=== PATIENT | female | born 1990 | race Caucasian/White ===

== ENCOUNTER 2020-09-25 15:33 | Outpatient (CLI) | payer BC, SELFPAY ==
[2020-09-25 18:49] LABS: Basophils Absolute Auto 0.1 K/mm3 (0.0-0.1); Basophils Percent Auto 0.6 % (0.2-1.2); Eosinophils Absolute Auto 0.1 K/mm3 (0-0.3); Hematocrit 38.8 % (37.0-47.0); Hemoglobin 13.6 g/dL (12.0-15.0); Immature Granulocyte Absolute 0.05 K/mm3 (0.00-0.031); Immature Granulocyte Percent A 0.6 % (0-0.5); Lymphocytes Absolute Auto 2.84 K/mm3 (0.9-3.2); Lymphocytes Percent Auto 32.4 % (18.3-44.2); Mean Corpuscular HGB Conc 35.1 g/dl (32-36); Mean Corpuscular Hemoglobin 29.5 pg (26-34); Mean Corpuscular Volume 84.2 fl (80-100); Mean Platelet Volume 10.1 fl (7.4-10.4); Monocytes Absolute Auto 0.5 K/mm3 (0.1-0.6); Monocytes Percent Auto 5.9 % (2.6-8.5); Neutrophils Absolute Auto 5.2 K/mm3 (1.3-6.7); Neutrophils Percent Auto 59.5 % (45.5-73.1); Platelet Count Result 236 k/mm3 (150-375); Red Blood Count 4.61 M/mm3 (4.2-5.4); Red Cell Distribution Width 12.1 % (11.5-14.5); White Blood Count 8.8 K/mm3 (4.5-10.0)
[2020-09-25 18:52] LABS: Add Urine Microscopic? YES; Appearance Urine Cloudy (Clear); Bacteria Urine Trace /hpf; Bilirubin Urine Negative (Negative); Blood Urine Negative (Negative); Color Urine Straw (Yellow); Glucose Urine UA Negative (Negative); Ketones Urine Negative (Negative); Leukocyte Esterase Ur Negative LEU/UL (NEGATIVE); Mucus Urine Rare /lpf; Nitrate Urine Negative (Negative); Protein Urine Negative (Negative); Specific Grav Ur 1.009 (1.001-1.035); Squamous Epithelial Cell Urine Many /hpf (Few); Urobilinogen Urine Negative mg/dL (<2.0); WBC Urine 0-3 /hpf (0-3)
[2020-09-25 19:35] LABS: Vitamin D 25 Hydroxy 35.6 ng/mL
[2020-09-25 19:53] LABS: HIV 1/2 Ab P24 Ag Result Negative (Negative)
[2020-09-25 19:55] LABS: Hepatitis B Surface Antigen Negative (Negative); Rubella IgG Antibody 85.5 IU/ML
[2020-09-25 20:01] LABS: Hepatitis C Virus Antibody Negative (Negative)
[2020-09-27 06:54] LABS: Rapid Plasma Reagin Non-Reactive (NonReactive)
[2020-09-30 08:16] LABS: Hematocrit 38.9 % (35.0-45.0); Hemoglobin 13.5 g/dL (11.7-15.5); MCH 29.5 pg (27.0-33.0); MCV 85.1 FL (80.0-100.0); RDW 12.7 % (11.0-15.0); Red Blood Cell Count 4.57 Mill/uL (3.80-5.10)
== END 2020-09-25 15:34 | disposition home or self-care (01) ==
PROVIDERS: PCP Obstetrics & Gynecology; Visit Provider Obstetrics & Gynecology
DX: Z34.91 Encounter for supervision of normal pregnancy, unspecified, first trimester (principal); Z3A.12 12 weeks gestation of pregnancy
CPT/HCPCS: 36415; 81001; 82306; 83021; 84443; 85025; 86592; 86703; 86762; 86787; 86803; 86850; 86900; 86901; 87086; 87340; G0432

== ENCOUNTER 2020-12-26 07:47 | Outpatient (RCR) | payer BC, SELFPAY ==
[2020-12-25 18:58] LABS: Basophils Percent Auto 0.3 % (0.2-1.2); Eosinophils Absolute Auto 0.1 K/mm3 (0-0.3); Eosinophils Percent Auto 1.7 % (0-4.4); Hematocrit 38.6 % (37.0-47.0); Hemoglobin 12.9 g/dL (12.0-15.0); Immature Granulocyte Absolute 0.08 K/mm3 (0.00-0.031); Lymphocytes Absolute Auto 1.99 K/mm3 (0.9-3.2); Lymphocytes Percent Auto 25.4 % (18.3-44.2); Mean Corpuscular HGB Conc 33.4 g/dl (32-36); Mean Corpuscular Hemoglobin 29.7 pg (26-34); Mean Corpuscular Volume 88.7 fl (80-100); Mean Platelet Volume 10.2 fl (7.4-10.4); Monocytes Absolute Auto 0.5 K/mm3 (0.1-0.6); Neutrophils Absolute Auto 5.2 K/mm3 (1.3-6.7); Neutrophils Percent Auto 65.6 % (45.5-73.1); Platelet Count Result 179 k/mm3 (150-375); Red Blood Count 4.35 M/mm3 (4.2-5.4); Red Cell Distribution Width 13.2 % (11.5-14.5); White Blood Count 7.9 K/mm3 (4.5-10.0)
[2020-12-25 19:10] LABS: Glucose 1 Hour PP 50gm Dose 98 mg/dL
[2020-12-26] MEDS: RHO(D) IMMUNE GLOBULIN 300 MCG/2 ML SYRINGE IM (19:32)
== END 2021-03-25 23:59 | disposition home or self-care (01) ==
LOC: ANHBWCLAB 07:47
PROVIDERS: PCP Obstetrics & Gynecology; Visit Provider Obstetrics & Gynecology
DX: Z29.13 Encounter for prophylactic Rho(D) immune globulin (principal); O36.0190 Maternal care for anti-D [Rh] antibodies, unspecified trimester, not applicable or unspecified; Z3A.00 Weeks of gestation of pregnancy not specified
CPT/HCPCS: 36415; 82947; 85025; 85461; 90384; 96372; J2790

== ENCOUNTER 2021-01-29 09:52 | Outpatient (CLI) | payer BC, SELFPAY ==
[2021-01-29 18:42] LABS: HIV 1/2 Ab P24 Ag Result Negative (Negative)
== END 2021-01-29 09:53 | disposition home or self-care (01) ==
LOC: ANHBWCLAB 09:55
PROVIDERS: PCP Obstetrics & Gynecology; Visit Provider Obstetrics & Gynecology
DX: Z34.90 Encounter for supervision of normal pregnancy, unspecified, unspecified trimester (principal); Z3A.00 Weeks of gestation of pregnancy not specified
CPT/HCPCS: 36415; 86703; G0432

== ENCOUNTER 2021-02-28 10:19 | Inpatient (IN) | payer BC, SELFPAY ==
[2021-02-28] VITALS (15 sets, daily range): BP systolic 112–139; BP diastolic 55–80; PULSE 62–73; TEMP 36.7–37.1; BMI 31.1
[2021-02-28 11:35] LABS: Basophils Percent Auto 0.3 % (0.2-1.2); Eosinophils Percent Auto 0.3 % (0-4.4); Hematocrit 37.1 % (37.0-47.0); Hemoglobin 12.7 g/dL (12.0-15.0); Immature Granulocyte Absolute 0.06 K/mm3 (0.00-0.031); Immature Granulocyte Percent A 0.6 % (0-0.5); Lymphocytes Absolute Auto 2.67 K/mm3 (0.9-3.2); Lymphocytes Percent Auto 28.8 % (18.3-44.2); Mean Corpuscular HGB Conc 34.2 g/dl (32-36); Mean Corpuscular Hemoglobin 29.3 pg (26-34); Mean Corpuscular Volume 85.7 fl (80-100); Mean Platelet Volume 10.5 fl (7.4-10.4); Monocytes Absolute Auto 0.6 K/mm3 (0.1-0.6); Monocytes Percent Auto 6.4 % (2.6-8.5); Neutrophils Absolute Auto 5.9 K/mm3 (1.3-6.7); Neutrophils Percent Auto 63.6 % (45.5-73.1); Platelet Count Result 150 k/mm3 (150-375); Red Blood Count 4.33 M/mm3 (4.2-5.4); Red Cell Distribution Width 12.7 % (11.5-14.5); White Blood Count 9.3 K/mm3 (4.5-10.0)
[2021-02-28 11:47] LABS: Alanine Aminotransferase 19 U/L (4-35); Albumin Level 3.7 g/dL (3.5-5.1); Alkaline Phosphatase 95 U/L (38-126); Anion Gap 8 mmol/L (8-16); Aspartate Amino Transferase 26 U/L (14-36); Bilirubin,Total 0.4 mg/dL (0.2-1.3); Blood Urea Nitrogen 7 mg/dL (7-17); Calcium 9.1 mg/dL (8.4-10.2); Carbon Dioxide 21 mmol/L (22-30); Chloride 107 mmol/L (98-107); Estimated Glomerular Filt Rate > 60; Glucose 77 mg/dL (65-110); Potassium 3.7 mmol/L (3.4-5.0); Sodium 136 mmol/L (137-145); Uric Acid 5.3 mg/dL (2.5-7.5)
[2021-02-28] MEDS: DINOPROSTONE 10 MG VAG INSERT VAGINAL (12:21)
--- NOTE | 2021-02-28 12:39 | LDADM ---
This patient, Anna Crar, was admitted to Labor/Delivery/Recovery 107 on 02/28/21 at 10:19. Plans for labor, pain management and were discussed with patient. Patient/family oriented to hospital policies and general routines including ID bracelet, bed and alarms, visiting hours, pain management, procedures, bathroom and other care routines, personal items, smoking policy, room service/diet and guest tray routines, security routines, and visiting hours. Patient/Family are encouraged to report perceived risks to care and to ask questions if they do not understand what they are told or what they should do. See OBIX for further documentation.
--- NOTE | 2021-02-28 15:08 | PM.IMHP ---
H&P: HPI History of Present Illness Date/Time: 02/28/21 15:08 G1 at 37+2 came to the office for repeat BP check after having elevated value earlier this week. She has been checking BP at home and getting 150s/90s. Occasional GRANDE that resolves on its own, none now. No visual changes. Normal movement. occasional ctx. No bleeding or leaking fluid Chief Complaint: gestational hypertension Review of Systems Review of Systems: All systems reviewed & are unremarkable except as noted in HPI and below PMFSH Family History Family History Father Hypertension Cerebrovascular accident Other Family history of allergic disorder Family history of osteoarthritis Social History Social History Smoking status: Never smoker Alcohol intake: never Substance use: never Gender identity (if verbalized by the patient): Female Spiritual care concerns: No Meds Home Medications and Allergies Home Medications Medication Instructions Recorded Confirmed Type docosahexaenoic acid 200 mg capsule 200 mg PO DAILY 07/26/20 02/28/21 History Allergies Allergy/AdvReac Type Severity Reaction Status Date / Time Penicillins Allergy Unknown as child Verified 02/28/21 09:32 Vital Signs Vital Signs - 24 hr 02/28/21 11:20 02/28/21 12:31 02/28/21 12:36 Pulse Rate 68 62 62 Blood Pressure 130/80 139/73 139/73 02/28/21 12:45 02/28/21 13:01 02/28/21 13:15 Pulse Rate 73 71 63 Blood Pressure 128/73 136/69 131/72 02/28/21 13:30 02/28/21 13:46 02/28/21 14:00 Pulse Rate 67 73 71 Blood Pressure 118/55 L 112/55 L 118/57 L 02/28/21 14:15 Pulse Rate 72 Blood Pressure 116/60 Exam Const: General: healthy appearing, no acute distress, well developed, alert and awake Resp: Auscultation: clear to auscultation bilaterally Cardio: Rate: regular rate Rhythm: regular rhythm GI: Inspection: non-distended and other (gravid) GI Palp: Yes Soft to palpation and No Tenderness to palpation present (GI) : Manual OB Exam: dilated 1 cm, effaced 25% and station high Extrem: General: no calf tenderness and edema (1+) bilateral Psych: Mental Status: mental status grossly normal H&P: Results Labs Labs: Short CBC 02/28/21 Range/Units 11:20 WBC 9.3 (4.5-10.0) K/mm3 Hgb 12.7 (12.0-15.0) g/dL Hct 37.1 (37.0-47.0) % Plt Count 150 (150-375) k/mm3 BMP 02/28/21 11:20 Sodium 136 L Potassium 3.7 Chloride 107 Carbon Dioxide 21 L BUN 7 Creatinine 0.60 L Glucose 77 Calcium 9.1 Liver Function 02/28/21 Range/Units 11:20 Total Bilirubin 0.4 (0.2-1.3) mg/dL AST 26 (14-36) U/L ALT 19 (4-35) U/L Alkaline Phosphatase 95 (38-126) U/L Albumin 3.7 (3.5-5.1) g/dL Assessment and Plan Assessment and plan (1) Gestational hypertension: Code(s): O13.9 - Gestational [-induced] hypertension without significant proteinuria, unspecified trimester Status: Acute Assessment and Plan: She was advised to proceed with induction of labor due to gestational hypertension at full term. Cervix unfavorable so we'll start with cervidil. GBS negative. Check PIH labs and observe BP and symptoms closely. status reassuring
[2021-03-01] VITALS (205 sets, daily range): BP systolic 107–191; BP diastolic 54–175; PULSE 50–110; TEMP 36.5–38.2; O2SAT 73–100
[2021-03-01] MEDS: miSOPROStol 25 MCG TABLET VAGINAL ×2 (02:05→06:16)
[2021-03-01] MEDS: LACTATED RINGERS 1,000 ML 125 ML IV CONT ×3 (02:07→15:58)
[2021-03-01] MEDS: fentaNYL CITRATE INJ (*CRX) 100 MCG/2 ML VIAL 50 MCG IV PUSH ×2 (09:41→12:36)
--- NOTE | 2021-03-01 10:01 | PM.OBPNLAB ---
Pain Control Date/time seen: 03/01/21 10:01 Pain control: tolerating well Pelvic Exam Dilation (cm): 2 Effacement (%): 50 station: -2 Amniotic membrane status: Ruptured Comments: AROM with clear fluid Contractions Monitor mode: External Contraction frequency: 2 Contraction pattern: Irregular Contraction intensity: Mild Status status: Category l Assessment and Plan Assessment: induction ongoing Plan: begin patient augmentation (in 30 minutes or so if needed)
[2021-03-01] MEDS: OXYTOCIN 30 UNITS/NS 500 ML 30 UNITS/500 ML BAG 6 UNITS IV CONT (10:51)
[2021-03-01] MEDS: ACETAMINOPHEN 500 MG TABLET 1000 MG PO (23:43)
[2021-03-02] VITALS (79 sets, daily range): BP systolic 124–169; BP diastolic 68–128; PULSE 53–87; RESP 18–20; TEMP 36.1–37.4; O2SAT 95–100
[2021-03-02] MEDS: CLINDAMYCIN 300 MG in DEXTROSE 5% IN WATER 50 ML 104 MG IVPB (00:03)
--- NOTE | 2021-03-02 05:33 | PM.OBPRVD ---
OB - Delivery Note Procedure Delivery date: 03/02/21 Procedure: events: Induced HTN Intrapartal events: Prolonged Labor > 20 hours and Febrile Induction method: per misoprostol protocol, per pitocin protocol and per cervidil protocol Delivery augmentation: rupture of membranes Delivery monitor: external FHT and internal uterine Route of delivery: Laceration Description: Perineal - 2nd Degree Delivery repair: vicryl (2-0) Specimen: Yes (placenta) Quantitative Blood Loss (ml): 212 Anesthesia type: Epidural Disposition: floor Baby Date of : 03/02/21 Time of : 05:08 Weeks of gestation at delivery: 37 gender: Female Weight (pounds): 7 Weight (ounces): 14 presentation: vertex position: Right Occiput Anterior Placenta delivery description: Spontaneous cord vessel description: 3 Vessels and Clamped/Cut score one minute: 8 score five minutes: 9
[2021-03-02] MEDS: OXYTOCIN 30 UNITS/NS 500 ML 30 UNITS/500 ML BAG 125 UNITS IV CONT (05:42)
[2021-03-02] MEDS: IBUPROFEN 600 MG TABLET PO ×3 (06:42→19:40)
[2021-03-02] MEDS: BENZOCAINE 20% AER SPR (*SP) 56 GM CAN 1 SPRAY TOPICAL (07:42)
[2021-03-02] MEDS: WITCH HAZEL 40 PADS 1 PAD TOPICAL (07:42)
[2021-03-02] MEDS: DOCUSATE SODIUM 100 MG CAPSULE PO (12:52)
[2021-03-02] MEDS: MULTIVIT/MIN/PREN/FOL AC/IRON TABLET 1 TAB PO (12:52)
--- NOTE | 2021-03-02 13:24 | OBPPTRN ---
0825-Patient transferred to post room #288 via wheelchair. Support person present. Oriented to unit, room, information board, rooming in, admission packet and security measures. Patient verbalizes understanding.
[2021-03-03 04:45] VITALS: BP 133/74; PULSE 70; TEMP 36.1; O2SAT 100
[2021-03-03 05:41] LABS: Hematocrit 32.4 % (37.0-47.0)
[2021-03-03] MEDS: MULTIVIT/MIN/PREN/FOL AC/IRON TABLET 1 TAB PO (07:06)
[2021-03-03] MEDS: IBUPROFEN 600 MG TABLET PO ×2 (07:06→19:09)
--- NOTE | 2021-03-03 07:56 | P.PNOB_ITS ---
OB - PN: Subj Subjective Date/time seen: 03/03/21 07:56 Patient comments: no complaints, pain well controlled and other (Lochia similar to menses. Occasional GRANDE relieved w/Motrin. No visual changes) baby status: doing well OB - PN: Obj Data Labs CBC & Chem 7: 03/03/21 04:24 02/28/21 11:20 Labs: Laboratory Results - last 24 hr 03/03/21 03/03/21 04:24 04:24 Hgb 11.0 L Hct 32.4 L Blood Type O Negative Antibody Screen TNP Screen Negative Baby's Blood Type A pos Baby's ALAINA Positive Doses of RhIg Required 1 OB - PN A/P Assessment and Plan (1) Gestational hypertension: Code(s): O13.9 - Gestational [-induced] hypertension without significant proteinuria, unspecified trimester Status: Acute Assessment and Plan: BP mostly WNL, a few mildly elevated values. Occasional GRANDE relieved with Motrin, otherwise asymptomatic so continue to observe BP, signs, and symptoms. Plan day: 1 (s/p vaginal delivery, doing well) Plan: routine care Time Spent With Patient Time: Total time spent is greater than 50% in coordination of care (as doc umented) at patient's floor/unit and/or counseling patient: Exam Const: General: no acute distress GI: Inspection: other (Fundus firm and nontender at umbilicus) GI Palp: Yes Soft to palpation and No Tenderness to palpation present (GI) Extrem: General: no edema
[2021-03-03 08:05] VITALS: BP 126/74; PULSE 72; RESP 16; TEMP 37.2; O2SAT 99
--- NOTE | 2021-03-03 09:35 | PC.NURSE ---
Consult with pt., mother reports infant is eagerly feeding, with minimal tenderness. Infant is able to freely thrust tongue past gum ridge and flange both lips. Skin is intact on both nipples, no redness and bruising noted. Reviewed feeding cues, frequencies, duration of feedings, feeding elimination flow sheet, and signs of adequate intake. Demonstrated stimulation techniques to wake for feeding. Assisted with infant to breast. Reviewed positioning/alignment in cross cradle, holding breast in ?U? hold and guided asymmetrical latch on. Discussed rational for each. Mother is able to latch independently with correct latch. nursed eagerly, with steady draws and frequent swallowing noted. Suggested mother stimulate while feeding to increase stimulate, increase intake and to assist with maintaining deep latch. Reviewed signs of a correct latch, effective nursing and suck swallow ratio. Infant would slip to shallow latch, mother reports tenderness. Demonstrated how to adjust latch more deeply while feeding. Mother reports she can feel change in latch. Nipple care reviewed of lanolin after feedings, warm compresses as needed. Mother is planning discharge today. Mother is able to independently latch with appropriate positioning/alignment. She denies any nipple discomfort, is feeding as required and waking to feed if needed. Infant has had at least 8 effective feedings in the past 24 hours, and is currently meeting outcomes for weight, output, jaundice and feeding frequencies. Mother states she feels confident to continue effective at home. Reviewed transition to breast milk, signs of adequate intake, and engorgement/relief. Instructed to call ICP if intake/output less than required. Reviewed regular medications mother is taking. Information provided per Char. Reviewed community resources on the [facility] website and in the Mom/Baby guide. Information on outpatient services provided. Mother has no further questions at this time.
[2021-03-03 09:51] LABS: Rapid Plasma Reagin Non-Reactive (NonReactive)
[2021-03-03] MEDS: RHO(D) IMMUNE GLOBULIN 300 MCG/2 ML SYRINGE IM (10:45)
[2021-03-03 12:00] VITALS: BP 126/73; PULSE 67; RESP 16; TEMP 36.6; O2SAT 99
--- NOTE | 2021-03-03 15:43 | WPDANLDPN2 ---
Anes-Prog Note L&D Date/Time: 03/03/21 15:43 Comfortable throughout: labor and delivery Neuraxial method: epidural Epidural/Spinal procedure site: clean & non-tender Neuro status: Neuro function grossly intact. Cardiovascular status: normal Respiratory status: normal Airway patency: baseline Mental status: baseline Post-Op hydration status: normal Vital Signs: Last Vital Signs Temp 36.6 C 03/03/21 12:00 Pulse 67 03/03/21 12:00 Resp 16 03/03/21 12:00 BP 126/73 03/03/21 12:00 Pulse Ox 99 03/03/21 12:00 Pain score (VAS): 0 I/O: Intake & Output 03/02/21 03/03/21 03/03/21 23:59 07:59 15:59 Intake Total 500 800 800 Output Total 1450 1590 660 Balance -950 -790 140 Post-procedural complaints: none Patient feedback: Patient satisfied with anesthetic care.
[2021-03-03 16:25] VITALS: BP 142/61; PULSE 72; RESP 18; TEMP 36.2
[2021-03-03 21:30] VITALS: BP 134/66; PULSE 59; RESP 18; TEMP 36.5
--- NOTE | 2021-03-04 05:35 | PC.NURSE ---
03/04/21 at 0500. Parents state that they viewed the discharge video Mother & Baby Care, The First Two Weeks . Patient was given the opportunity and encouraged to ask questions. Patient verbalized understanding of information shared and has been given the mother/baby guide for home reference.
--- NOTE | 2021-03-04 08:01 | PM.OBPNVD ---
OB - PN: Subj Subjective Date/time seen: 03/04/21 08:01 Patient comments: no complaints, pain well controlled and other (Lochia similar to menses) [place] baby status: doing well Narrative: No GRANDE/visual changes OB - PN: Obj Data Labs CBC & Chem 7: 03/03/21 04:24 02/28/21 11:20 Labs: Laboratory Results - last 24 hr 02/28/21 03/03/21 11:20 04:24 RPR Non-reactive Blood Type O Negative Antibody Screen TNP Screen Negative Baby's Blood Type A pos Baby's ALAINA Positive Doses of RhIg Required 1 OB - PN A/P Assessment and Plan (1) Gestational hypertension: Code(s): O13.9 - Gestational [-induced] hypertension without significant proteinuria, unspecified trimester Status: Acute Assessment and Plan: BP mostly normal with occasional mild elevation, asymptomatic Plan day: 2 (s/p vaginal delivery, doing well) Plan: routine care, discharge home and other (Follow up in office in 1-2 weeks) Time Spent With Patient Time: Total time spent is greater than 50% in coordination of care (as documented) at patient's floor/unit and/or counseling patient: Time with patient: less than 15 minutes Exam Const: General: no acute distress GI: Inspection: other (Fundus firm and nontender below umbilicus) GI Palp: Yes Soft to palpation and No Tenderness to palpation present (GI) Extrem: General: no edema
[2021-03-04 08:10] VITALS: BP 139/78; PULSE 63; RESP 18; TEMP 36.3; O2SAT 99
--- NOTE | 2021-03-04 08:11 | PM.OBDSVD ---
DS: Admitting Diagnosis Admitting Diagnosis Gestational hypertension, induction of labor DS: Discharge Diagnosis Discharge Diagnosis (1) Gestational hypertension: Code(s): O13.9 - Gestational [-induced] hypertension without significant proteinuria, unspecified trimester Status: Acute (2) Vaginal delivery: Code(s): O80 - Encounter for full-term uncomplicated delivery Status: Acute OB - DS: Summary OB Procedures : PIH Mgmt OB Procedures Intrapartum: Spontaneous Vag Delivery OB Procedures: : None Peripartum Data Laceration Description: Perineal - 2nd Degree complications: none Status at Discharge Functional status at discharge: independent ambulation Overall status at discharge: patient is progressing back to baseline Time Spent with Patient Time attestation: Total time spent providing and/or coordinating discharge services: Time spent: Less than 30 minutes DS: Data Data Completed and Pending Pending studies at discharge: Pending at discharge 03/02/21 05:22 Surgical [PTH] Routine Labs on day of discharge: Labs from last 24 hours 03/03/21 02/28/21 04:24 11:20 RPR Non-reactive Blood Type O Negative Antibody Screen TNP Screen Negative Baby's Blood Type A pos Baby's ALAINA Positive Doses of RhIg Required 1 Discharge Plan Discharge Attending physician on discharge: Julieta Barnes Discharging Clinician: Julieta Barnes Patient Disposition: Home, Self-Care Activity: may shower and pelvic rest Diet: as tolerated Patient Instructions: Antibiotic Form Stand Alone Forms: General Discharge Information Follow-up/Referrals: Julieta Barnes MD [Physician] - 2 Weeks Discharge Medications: New ibuprofen 600 mg Tablet 600 mg PO Q6H PRN (Reason: Cramping) Qty: 60 RF: 0 Continued DHA 200 mg capsule 200 mg PO DAILY RF: 0 Date of admission: 02/28/21 10:19 Primary Care Provider: PHYSICIAN,SETTER COLD ROLLING MACHINE Admitting Provider: Julieta Barnes Attending physician on admission: Julieta Barnes Condition: Stable
[2021-03-04] MEDS: IBUPROFEN 600 MG TABLET PO (09:32)
[2021-03-04] MEDS: MULTIVIT/MIN/PREN/FOL AC/IRON TABLET 1 TAB PO (09:32)
[2021-03-05 10:03] VITALS: BP 134/78; PULSE 74; RESP 16; TEMP 37; O2SAT 99
== END 2021-03-04 11:25 | disposition home or self-care (01) | DRG 807 ==
LOC: ANHLDR 10:32 → ANHOB2 03-02 08:29
PROVIDERS: Admitting Provider Obstetrics & Gynecology; Visit Provider Obstetrics & Gynecology
DX: O75.2 Pyrexia during labor, not elsewhere classified (principal); Z37.0 Single live birth; O13.4 Gestational [pregnancy-induced] hypertension without significant proteinuria, complicating childbirth; O70.1 Second degree perineal laceration during delivery; O76 Abnormality in fetal heart rate and rhythm complicating labor and delivery; Z3A.37 37 weeks gestation of pregnancy
CPT/HCPCS: 36415; 80053; 84550; 85014; 85018; 85025; 85461; 86592; 86850; 86880; 86900; 86901; 86902; 88307; 90384; A9270; J2590; J2790; J2795; J3010; J7120

== ENCOUNTER 2022-09-08 12:31 | Outpatient (CLI) | payer BC, SELFPAY ==
[2022-09-08 19:31] LABS: Basophils Percent Auto 0.3 % (0.2-1.2); Eosinophils Absolute Auto 0.1 K/mm3 (0-0.3); Hematocrit 38.3 % (37.0-47.0); Hemoglobin 12.9 g/dL (12.0-15.0); Immature Granulocyte Absolute 0.02 K/mm3 (0.00-0.031); Immature Granulocyte Percent A 0.2 % (0-0.5); Lymphocytes Absolute Auto 2.64 K/mm3 (0.9-3.2); Lymphocytes Percent Auto 30.2 % (18.3-44.2); Mean Corpuscular HGB Conc 33.7 g/dl (32-36); Mean Corpuscular Hemoglobin 28.4 pg (26-34); Mean Corpuscular Volume 84.4 fl (80-100); Mean Platelet Volume 10.1 fl (7.4-10.4); Monocytes Absolute Auto 0.5 K/mm3 (0.1-0.6); Monocytes Percent Auto 5.8 % (2.6-8.5); Neutrophils Absolute Auto 5.5 K/mm3 (1.3-6.7); Neutrophils Percent Auto 62.5 % (45.5-73.1); Platelet Count Result 225 k/mm3 (150-375); Red Blood Count 4.54 M/mm3 (4.2-5.4); Red Cell Distribution Width 12.5 % (11.5-14.5); White Blood Count 8.7 K/mm3 (4.5-10.0)
[2022-09-08 20:16] LABS: HIV 1/2 Ab P24 Ag Result Negative (Negative)
[2022-09-08 20:49] LABS: Hepatitis B Surface Anti Res Positive; Hepatitis C Virus Antibody Negative (Negative)
[2022-09-08 21:22] LABS: Vitamin D 25 Hydroxy 32.7 ng/mL
[2022-09-08 22:02] LABS: Hemoglobin A1C 4.8 % (<5.7)
[2022-09-09 13:46] LABS: Hepatitis B Surface Antigen Negative (Negative)
[2022-09-09 16:46] LABS: Rapid Plasma Reagin Non-Reactive (NonReactive)
== END 2022-09-08 12:32 | disposition home or self-care (01) ==
LOC: ANHBWCLAB 12:33
PROVIDERS: Visit Provider Advanced Practice Midwife
DX: Z36.9 Encounter for antenatal screening, unspecified (principal)
CPT/HCPCS: 36415; 82306; 82728; 83036; 85025; 86592; 86703; 86706; 86762; 86803; 86850; 86900; 86901; 87340; G0432

== ENCOUNTER 2022-09-10 10:44 | Outpatient (CLI) | payer BC, SELFPAY ==
--- NOTE | ~2022-09-10 | US_ITS ---
EXAMINATION: US OB /maternal detail DATE: 09/10/2022 12:46 INDICATION: Second trimester anatomic survey TECHNIQUE: Real-time ultrasound of the pelvis was performed. COMPARISON: None. FINDINGS: There is a single living fetus in breech presentation. The placenta is posterior. heart rate is 153 beats per minute (bpm). cardiac activity and movement are noted. The amniotic fluid index is subjectively normal. The following anatomy was identified as normal: 4 chamber heart 3 vessel cord cord insertion kidneys urinary bladder stomach spine diaphragm ventricles cisterna magna cerebellum The following biometric data were obtained: Biparietal diameter (BPD): 3.7 cm; head circumference (HC): 14.5 cm; abdominal circumference (AC): 12 .3 cm; femur length (FL): 2.6 cm. These measurements are concordant. Estimated weight is 221 g +/- 33 g, which correlates with the 57th percentile when 02/12/2023 is used as estimated date of delivery. As single measurements, these parameters are each equal to the following estimated gestational ages w ith ranges of +/- 2 standard deviations: BPD: 17 weeks 3 days +/- 1 weeks 1 days. HC: 17 weeks 5 days +/- 1 weeks 1 days. AC: 18 weeks 3 days +/- 2 weeks 0 days. FL: 1 weeks 75 days +/- 1 weeks 3 days. estimated gestational age based solely on measurements from this exam is 17 weeks 6 days +/- 1 weeks 2 days. IMPRESSION: 1. Single living fetus in breech presentation. 2. Estimated weight is 221 g +/- 33 g, which correlates with the 57th percentile when 02/12/2023 is used as estimated date of delivery. Reviewed, dictated and finalized at location L. T PUMP OPERATOR IMPRESSION: 1. Single living fetus in breech presentation. 2. Estimated weight is 221 g +/- 33 g, which correlates with the 57th per centile when 02/12/2023 is used as estimated date of delivery.
== END 2022-09-10 10:45 | disposition home or self-care (01) ==
PROVIDERS: Visit Provider Advanced Practice Midwife
DX: Z36.9 Encounter for antenatal screening, unspecified (principal)
CPT/HCPCS: 76805

== ENCOUNTER 2022-11-30 12:27 | Outpatient (CLI) | payer BC, SELFPAY ==
[2022-11-30 18:42] LABS: Glucose 1 Hour PP 50gm Dose 102 mg/dL
[2022-11-30 19:02] LABS: Hematocrit 36.5 % (37.0-47.0); Hemoglobin 12.4 g/dL (12.0-15.0)
[2022-11-30 19:18] LABS: HIV 1/2 Ab P24 Ag Result Negative (Negative)
== END 2022-11-30 12:28 | disposition home or self-care (01) ==
LOC: ANHBWCLAB 12:30
PROVIDERS: Visit Provider Obstetrics & Gynecology Gynecology
DX: Z36.9 Encounter for antenatal screening, unspecified (principal)
CPT/HCPCS: 36415; 82306; 82947; 85014; 85018; 86703; G0432

== ENCOUNTER 2022-12-21 17:09 | Outpatient (RCR) | payer BC, SELFPAY ==
[2022-12-23] MEDS: RHO(D) IMMUNE GLOBULIN 300 MCG/2 ML SYRINGE IM (15:58)
== END 2023-03-21 23:59 | disposition home or self-care (01) ==
LOC: ANHLAB 17:09
PROVIDERS: Visit Provider Advanced Practice Midwife
DX: O36.0190 Maternal care for anti-D [Rh] antibodies, unspecified trimester, not applicable or unspecified (principal); Z3A.00 Weeks of gestation of pregnancy not specified
CPT/HCPCS: 36415; 85461; 86850; 86900; 86901; 90384; 96372; J2790

== ENCOUNTER 2023-02-03 14:27 | Outpatient (CLI) | payer OTHER, SELFPAY ==
[2023-02-03] VITALS (9 sets, daily range): BP systolic 127–139; BP diastolic 64–77; PULSE 59–69
[2023-02-03 14:59] LABS: Basophils Percent Auto 0.3 % (0.2-1.2); Eosinophils Absolute Auto 0.1 K/mm3 (0-0.3); Hematocrit 36.8 % (37.0-47.0); Hemoglobin 12.2 g/dL (12.0-15.0); Immature Granulocyte Absolute 0.05 K/mm3 (0.00-0.031); Immature Granulocyte Percent A 0.5 % (0-0.5); Lymphocytes Absolute Auto 3.11 K/mm3 (0.9-3.2); Lymphocytes Percent Auto 33.3 % (18.3-44.2); Mean Corpuscular HGB Conc 33.2 g/dl (32-36); Mean Corpuscular Hemoglobin 28.6 pg (26-34); Mean Corpuscular Volume 86.2 fl (80-100); Mean Platelet Volume 10.7 fl (7.4-10.4); Monocytes Absolute Auto 0.6 K/mm3 (0.1-0.6); Monocytes Percent Auto 6.1 % (2.6-8.5); Neutrophils Absolute Auto 5.5 K/mm3 (1.3-6.7); Neutrophils Percent Auto 58.8 % (45.5-73.1); Platelet Count Result 183 k/mm3 (150-375); Red Blood Count 4.27 M/mm3 (4.2-5.4); Red Cell Distribution Width 13.1 % (11.5-14.5); White Blood Count 9.3 K/mm3 (4.5-10.0)
[2023-02-03 15:10] LABS: Alanine Aminotransferase 17 U/L (6-35); Albumin Level 3.7 g/dL (3.5-5.1); Alkaline Phosphatase 142 U/L (38-126); Anion Gap 6 mmol/L (8-16); Aspartate Amino Transferase 24 U/L (14-36); Bilirubin,Total 0.3 mg/dL (0.2-1.3); Blood Urea Nitrogen 7 mg/dL (7-17); Calcium 8.6 mg/dL (8.4-10.2); Carbon Dioxide 24 mmol/L (22-30); Chloride 105 mmol/L (98-107); Estimated Glomerular Filt Rate > 60; Glucose 80 mg/dL (65-110); Potassium 3.7 mmol/L (3.4-5.0); Sodium 135 mmol/L (137-145); Uric Acid 5.2 mg/dL (2.5-7.5)
[2023-02-03 15:17] LABS: Creatinine Urine 70.8 mg/dL; Total Protein Urine Random 7 mg/dL
[2023-02-03 15:21] LABS: Appearance Urine Cloudy (Clear); Bacteria Urine 3+ /hpf; Bilirubin Urine Negative (Negative); Blood Urine Negative (Negative); Color Urine Yellow (Yellow); Glucose Urine UA Negative (Negative); Hyaline Casts Urine Present /lpf; Ketones Urine Negative (Negative); Leukocyte Esterase Ur Trace LEU/UL (NEGATIVE); Nitrate Urine Negative (Negative); Non Pathogenic Casts 0-2; Protein Urine Negative (Negative); Specific Grav Ur 1.012 (1.001-1.035); Squamous Epithelial Cell Urine Few /hpf (Few); Urobilinogen Urine 0.2 mg/dL (<2.0); WBC Urine 21-50 /hpf (0-3)
[2023-02-03 15:24] LABS: Add Urine Microscopic? YES
== END 2023-02-03 16:22 | disposition home or self-care (01) ==
LOC: ANHOBOP 14:31 → ANHLDR 14:31
PROVIDERS: Advanced Practice Midwife; Visit Provider Obstetrics & Gynecology Gynecology
DX: O13.9 Gestational [pregnancy-induced] hypertension without significant proteinuria, unspecified trimester (principal); Z3A.00 Weeks of gestation of pregnancy not specified
CPT/HCPCS: 36415; 59025; 80053; 81001; 82570; 84156; 84550; 85025; 87086; 99199

== ENCOUNTER 2023-02-06 17:01 | Inpatient (IN) | payer OTHER, SELFPAY ==
[2023-02-06] VITALS (15 sets, daily range): BP systolic 124–149; BP diastolic 61–91; PULSE 62–77; RESP 18; TEMP 36.8–37.2; BMI 30.2
--- NOTE | 2023-02-06 17:45 | LDADM ---
This patient, Anna Carr, was admitted to Labor/Delivery/Recovery 105 on 02/06/23 at 17:01. Plans for labor, pain management and were discussed with patient. Patient/family oriented to hospital policies and general routines including ID bracelet, bed and alarms, visiting hours, pain management, procedures, bathroom and other care routines, personal items, smoking policy, room service/diet and guest tray routines, security routines, and visiting hours. Patient/Family are encouraged to report perceived risks to care and to ask questions if they do not understand what they are told or what they should do. See OBIX for further documentation.
[2023-02-06] MEDS: miSOPROStol 25 MCG TABLET SUBLINGUAL ×2 (17:55→22:48)
[2023-02-06 17:56] LABS: Basophils Percent Auto 0.3 % (0.2-1.2); Eosinophils Absolute Auto 0.1 K/mm3 (0-0.3); Eosinophils Percent Auto 1.2 % (0-4.4); Hematocrit 34.3 % (37.0-47.0); Hemoglobin 11.8 g/dL (12.0-15.0); Immature Granulocyte Absolute 0.05 K/mm3 (0.00-0.031); Immature Granulocyte Percent A 0.5 % (0-0.5); Lymphocytes Percent Auto 32.7 % (18.3-44.2); Mean Corpuscular HGB Conc 34.4 g/dl (32-36); Mean Corpuscular Hemoglobin 28.5 pg (26-34); Mean Corpuscular Volume 82.9 fl (80-100); Mean Platelet Volume 10.7 fl (7.4-10.4); Monocytes Absolute Auto 0.8 K/mm3 (0.1-0.6); Monocytes Percent Auto 7.9 % (2.6-8.5); Neutrophils Absolute Auto 5.5 K/mm3 (1.3-6.7); Neutrophils Percent Auto 57.4 % (45.5-73.1); Platelet Count Result 171 k/mm3 (150-375); Red Blood Count 4.14 M/mm3 (4.2-5.4); Red Cell Distribution Width 12.9 % (11.5-14.5); White Blood Count 9.5 K/mm3 (4.5-10.0)
[2023-02-06 18:06] LABS: Alanine Aminotransferase 18 U/L (6-35); Albumin Level 3.7 g/dL (3.5-5.1); Alkaline Phosphatase 145 U/L (38-126); Anion Gap 6 mmol/L (8-16); Aspartate Amino Transferase 24 U/L (14-36); Bilirubin,Total 0.3 mg/dL (0.2-1.3); Blood Urea Nitrogen 7 mg/dL (7-17); Calcium 8.5 mg/dL (8.4-10.2); Carbon Dioxide 21 mmol/L (22-30); Chloride 108 mmol/L (98-107); Estimated CRCL calculation 158 ml/min; Estimated Glomerular Filt Rate > 60; Glucose 82 mg/dL (65-110); Potassium 3.7 mmol/L (3.4-5.0); Sodium 135 mmol/L (137-145)
[2023-02-06] MEDS: AMPICILLIN 2 GM/NS 100 ML 2 GM/100 ML BAG IVPB (18:21)
[2023-02-06] MEDS: LACTATED RINGERS 1,000 ML 125 ML IV CONT (18:21)
[2023-02-06] MEDS: AMPICILLIN 1 GM/NS 50 ML 1 GM/50 ML BAG IVPB (22:28)
--- NOTE | 2023-02-06 23:21 | WPDANESEPP ---
Anes - Eval Pre Procedure Procedure: labor epidural Date/Time: 02/06/23 23:21 Pre Op Diagnosis: IOL Patient Data Age: 32 Gender: F Height: 1.73 m Weight: 90 kg Last Vital Signs Temp 37.2 C 02/06/23 22:00 Pulse 71 02/06/23 23:00 Resp 18 02/06/23 20:00 BP 142/79 H 02/06/23 23:00 O2 Del Method Room Air 02/06/23 17:44 Allergies Allergy/AdvReac Type Severity Reaction Status Date / Time Penicillins Allergy Unknown as child Verified 01/22/23 14:46 Home Medications Medication Instructions Recorded Confirmed Type cholecalciferol (vitamin D3) 125 1 mcg WEEKLY 01/22/23 02/06/23 History mcg (5,000 unit) tablet (Vitamin D3) prenat.vits,christina,[id number] 1 tablet PO DAILY 01/22/23 02/06/23 History Baby Aspirin 81 mg PO DAILY 02/06/23 02/06/23 History Laboratory Tests 02/06/23 17:34 WBC 9.5 K/mm3 (4.5-10.0) RBC 4.14 L M/mm3 (4.2-5.4) Hgb 11.8 L g/dL (12.0-15.0) Hct 34.3 L % (37.0-47.0) MCV 82.9 fl (80-100) MCH 28.5 pg (26-34) MCHC 34.4 g/dl (32-36) RDW 12.9 % (11.5-14.5) Plt Count 171 k/mm3 (150-375) MPV 10.7 H fl (7.4-10.4) Immature Gran % (Auto) 0.5 % (0-0.5) Neut % (Auto) 57.4 % (45.5-73.1) Lymph % (Auto) 32.7 % (18.3-44.2) [place] % (Auto) 7.9 % (2.6-8.5) Eos % (Auto) 1.2 % (0-4.4) Baso % (Auto) 0.3 % (0.2-1.2) Lymph # (Auto) 3.10 K/mm3 (0.9-3.2) [place] # (Auto) 0.8 H K/mm3 (0.1-0.6) Eos # (Auto) 0.1 K/mm3 (0-0.3) Baso # (Auto) 0.0 K/mm3 (0.0-0.1) Abs Immat Gran (auto) 0.05 H K/mm3 (0.00-0.031) Absolute Neuts (auto) 5.5 K/mm3 (1.3-6.7) Absolute Nucleated RBC 0.0 K/mm3 (0.0-0.012) Nucleated RBC % 0.0 % (0.0-0.2) Sodium 135 L mmol/L (137-145) Potassium 3.7 mmol/L (3.4-5.0) Chloride 108 H mmol/L (98-107) Carbon Dioxide 21 L mmol/L (22-30) Anion Gap 6 L mmol/L (8-16) BUN 7 mg/dL (7-17) Creatinine 0.50 L mg/dL (0.7-1.0) Estim Creat Clear Calc 158 ml/min Estimated GFR > 60 (59 - ) Glucose 82 mg/dL (65-110) Calcium 8.5 mg/dL (8.4-10.2) Total Bilirubin 0.3 mg/dL (0.2-1.3) AST 24 U/L (14-36) ALT 18 U/L (6-35) Alkaline Phosphatase 145 H U/L (38-126) Total Protein 7.0 g/dL (6.3-8.2) Albumin 3.7 g/dL (3.5-5.1) RPR Pending Blood Type O Negative Antibody Screen Positive Antibody Identification Passive Due to RH Imm Glob Antigen Identification Cancelled ALAINA, IgG Interpret Not Performed ALAINA, Poly Interpret Neg ALAINA, Complement Interp Not Performed Patient hx anesthesia problems: none Family hx anesthesia problems: none Results Review: All pre-operative results and documents have been reviewed as part of the pre-operative evaluation. [facility] Past Medical History Medical History (Updated 02/06/23 @ 23:21 by Flores Broderick CRNA) Obesity (BMI 30-39.9) Vaginal delivery x1 Surgical History Surgical History [place] teeth extracted Family History Family History Father Hypertension Cerebrovascular accident Other Family history of allergic disorder Family history of osteoarthritis Social History Social History Smoking status: Never smoker Alcohol intake: never Substance use: never Lack of Transportation: YES Lack of Food: Never True Current Housing: I Have Housing Concerned About Future Housing: No Difficulty Paying Gas/Electric Bills: No Difficulty Paying for Meds: No Currently Unemployed: No Education: Bachelor's Degree Difficulty w/ Childcare or Family Care: No Gender identity (if verbalized by the patient): Female Spiritual care concerns: No Exam Day of Procedure 02/06/23 23:
[2023-02-07] VITALS (75 sets, daily range): BP systolic 115–160; BP diastolic 59–123; PULSE 60–83; RESP 16–18; TEMP 36.6–37.1; O2SAT 97–100
[2023-02-07] MEDS: LACTATED RINGERS 1,000 ML 125 ML IV CONT ×2 (02:36→11:04)
[2023-02-07] MEDS: miSOPROStol 25 MCG TABLET SUBLINGUAL (02:36)
[2023-02-07] MEDS: AMPICILLIN 1 GM/NS 50 ML 1 GM/50 ML BAG IVPB ×3 (02:37→10:39)
[2023-02-07] MEDS: OXYTOCIN 30 UNITS/NS 500 ML 30 UNITS/500 ML BAG IV CONT (06:36)
--- NOTE | 2023-02-07 09:09 | WPDOBADMIT ---
Obstetrics - Admit Note Admission Note: record reviewed. No pertinent additions to the history and/or any subsequent changes in the physical findings that are not consistent with the expected course of the were found. Additions to the history and/or subsequent changes in the physical findings follow. None. [place]
--- NOTE | 2023-02-07 09:15 | PM.OBPNLAB ---
Pain Control Date/time seen: 02/07/23 09:05 Pain control: tolerating well Comments: feeling occasional mild contractions Pelvic Exam Dilation (cm): 3 Effacement (%): 70 station: -2 Amniotic membrane status: Intact Comments: head well applied to cervix. Contractions Monitor mode: External Contraction frequency: 3 Contraction pattern: Regular Contraction phase: Contraction Contraction intensity: Moderate Status status: Category l Assessment and Plan Pitocin rate (mU/min): 6 Assessment: induction ongoing Comments: CNM to bedside. Denies GRANDE, visual changes, RUQ pain. BPs normal to mild range, no severe ranges. No evidence of preeclampsia. Discussed plan of care an option for amniotomy. Discussed risks, benefits, and expectations of breaking water. Patient is agreeable. Amniotomy performed and there was a moderate return of clear amniotic fluid. Patient tolerated procedure well. Plan to titrate pitocin as needed to achieve adequate contraction pattern. Anticipate vaginal . Dr. Mckenna updated.
--- NOTE | 2023-02-07 09:55 | PM.OBPRVD ---
OB - Delivery Note Procedure Delivery date: 03/10/23 Procedure: Events: Gestational Hypertension and Positive Group B Strep (GBS) Induction method: Per Misoprostol Protocol and Per Pitocin Protocol Delivery augmentation: Rupture of Membranes Delivery monitor: External FHT and External Uterine Route of delivery: Episiotomy description: None Laceration Description: None and Other (1.5 cm labial tag removed per pt request. States present since first and gets irritated and in the way ) Delivery repair: vicryl Specimen: Yes (placenta and labial tag) Quantitative Blood Loss (ml): 200 Anesthesia type: Epidural Disposition: Floor Narrative: Patient arrived for induction of labor secondary to gestational hypertension. She was given buccal Cytotec followed by Pitocin. Amniotomy was performed. she was given an epidural for analgesia and she quickly progressed to complete dilation. she pushed briefly and brought the head to a crown and delivered over an intact perineum after which there was excellent restitution and easy delivery of both shoulders. The was placed on the maternal abdomen and dried and stimulated. Care was transferred to the nursery staff. After 1 minute of life, the cord was doubly clamped and cut. Cord blood, cord gases, and cord segment were obtained. The placenta delivered in [place] presentation in the fundus was firm below U. patient requested that a small labial tag that had been present since her 1st delivery be removed. She reports that this gets in the way and get caught on clothing and . This area was removed with scissors and repaired in usual fashion. There was excellent hemostasis. All delivery counts correct. Infant skin to skin with mother in the delivery room. Baby Date of : 03/10/23 Time of : 14:09 Weeks of gestation at delivery: 39 Infant gender: Male Weight (pounds): 0 ( weight unavailable at the time of this note. Skin to skin with mother.) presentation: vertex position: Left Occiput Anterior Placenta delivery description: Spontaneous and Normal Configuration Cord Vessel Description: 3 Vessels, Clamped/Cut and Delayed Cord Clamping score one minute: 9 score five minutes: 9
--- NOTE | 2023-02-07 09:56 | PM.OBDSVD ---
DS: Admitting Diagnosis Discharge Date 02/09/2023 Admitting Diagnosis 32 y.o. at 39 weeks gHTN IOL Rh negative DS: Discharge Diagnosis Discharge Diagnosis (1) (normal spontaneous vaginal delivery): Code(s): O80 - Encounter for full-term uncomplicated delivery Status: Acute (2) Mother currently breast-feeding: Code(s): Z39.1 - Encounter for care and examination of lactating mother Status: Acute (3) Gestational hypertension: Code(s): O13.9 - Gestational [-induced] hypertension without significant proteinuria, unspecified trimester Status: Acute OB - DS: Summary Hospital Course Hospital Course: Uncomplicated OB Procedures : Ultrasound OB Procedures Intrapartum: Spontaneous Vag Delivery and GBS prophylaxis OB Procedures: : None (Rhogam not indicated as infant Rh negative.) Peripartum Data Delivery Method: Natural Vaginal Laceration Description: None Episiotomy description: None complications: none Status at Discharge Functional status at discharge: independent ambulation Overall status at discharge: patient is progressing back to baseline Time Spent with Patient Time attestation: Total time spent providing and/or coordinating discharge services: DS: Data Data Completed and Pending Labs on day of discharge: Labs from last 24 hours 02/06/23 17:34 WBC 9.5 RBC 4.14 L Hgb 11.8 L Hct 34.3 L MCV 82.9 MCH 28.5 MCHC 34.4 RDW 12.9 Plt Count 171 MPV 10.7 H Immature Gran % (Auto) 0.5 Neut % (Auto) 57.4 Lymph % (Auto) 32.7 [place] % (Auto) 7.9 Eos % (Auto) 1.2 Baso % (Auto) 0.3 Lymph # (Auto) 3.10 [place] # (Auto) 0.8 H Eos # (Auto) 0.1 Baso # (Auto) 0.0 Abs Immat Gran (auto) 0.05 H Absolute Neuts (auto) 5.5 Absolute Nucleated RBC 0.0 Nucleated RBC % 0.0 Sodium 135 L Potassium 3.7 Chloride 108 H Carbon Dioxide 21 L Anion Gap 6 L BUN 7 Creatinine 0.50 L Estim Creat Clear Calc 158 Estimated GFR > 60 Glucose 82 Calcium 8.5 Total Bilirubin 0.3 AST 24 ALT 18 Alkaline Phosphatase 145 H Total Protein 7.0 Albumin 3.7 RPR Pending Blood Type O Negative Antibody Screen Positive Antibody Identification Passive Due to RH Imm Glob Antigen Identification Cancelled ALAINA, IgG Interpret Not Performed ALAINA, Poly Interpret Neg ALAINA, Complement Interp Not Performed Discharge Plan Discharge Attending physician on discharge: Lyndsay Torres Consulting providers: Flores Broderick; Jessie Ahumada Discharging Clinician: Jessie Ahumada Patient Disposition: Home, Self-Care Activity: may shower Diet: as tolerated Discharge Instructions: Continue taking your vitamin and any other supplements as previously directed (Examples: Iron, Vitamin D). You may take Tylenol 1000mg over the counter every 6 hours as needed for pain. Do not exceed 4000mg of Tylenol daily. You may continue using tucks pads and dermoplast spray if needed for a few more days. Education: Mom and Baby Guide Given to: Mother Follow-Up: Call your delivering provider's office for an appointment to be seen in: Call for appointment Mom and baby should come to the [facility] for the follow-up appointment. Appointment Date/Time: February 11, 2023 at 11:00 am What to expect at your follow-up visit: Physical Assessment Call [phone] if you are unable to keep your appointment time. BREAST CARE: * Wear a snug supportive bra. * For engorgement discomfort: Breast Feeding: * Apply warm moist washcloths * Express milk as needed to relieve engorgement * Wear loose clothing * For sore nipples: * Identify correct latch-on * Apply warm moist washcloths before and after nursing * Air dry nipples after nursing * May apply Lansinoh cream to nipples EPISIOTOMY/PERINEAL CARE: * Until bleeding stops, use
[2023-02-07 10:17] LABS: Rapid Plasma Reagin Non-Reactive (NonReactive)
[2023-02-07] MEDS: OXYTOCIN 30 UNITS/NS 500 ML 30 UNITS/500 ML BAG 125 UNITS IV CONT (14:43)
[2023-02-07] MEDS: BENZOCAINE 20% AER SPR (*SP) 56 GM CAN 1 SPRAY TOPICAL (16:42)
[2023-02-07] MEDS: WITCH HAZEL 40 PADS 1 PAD TOPICAL (16:42)
[2023-02-07] MEDS: IBUPROFEN 600 MG TABLET PO (23:20)
[2023-02-07] MEDS: ACETAMINOPHEN 325 MG TABLET 650 MG PO (23:20)
[2023-02-08] VITALS (7 sets, daily range): BP systolic 131–151; BP diastolic 68–95; PULSE 56–73; RESP 16–18; TEMP 36.1–36.9; O2SAT 98–100
[2023-02-08 04:31] LABS: Hematocrit 31.6 % (37.0-47.0); Hemoglobin 10.7 g/dL (12.0-15.0)
[2023-02-08] MEDS: ACETAMINOPHEN 325 MG TABLET 650 MG PO ×2 (07:45→20:09)
[2023-02-08] MEDS: MULTIVIT/MIN/PREN/FOL AC/IRON TABLET 1 TAB PO (07:47)
[2023-02-08] MEDS: DOCUSATE SODIUM 100 MG CAPSULE PO (07:47)
[2023-02-08] MEDS: IBUPROFEN 600 MG TABLET PO ×2 (07:47→20:09)
--- NOTE | 2023-02-08 07:55 | PM.OBPNVD ---
OB - PN: Subj Subjective Date/time seen: 02/08/23 07:30 Patient comments: no complaints and pain well controlled baby status: doing well Reading feeding status: breast and bottle feeding Narrative: Reports baby was sleepy overnight and was given formula to supplement. OB - PN: Obj Data Labs 02/08/23 03:38 02/06/23 17:34 Labs: Laboratory Results - last 24 hr 02/06/23 02/08/23 17:34 03:38 Hgb 10.7 L Hct 31.6 L RPR Non-reactive OB - PN A/P Plan day: 1 Plan: routine care Time Spent With Patient Time: Total time spent is greater than 50% in coordination of care (as documented) at patient's floor/unit and/or counseling patient: Review of Systems Review of Systems: All systems reviewed & are unremarkable except as noted in HPI and below Exam Narrative: Alert and oriented. Mood is pleasant and cooperative. Urinating without difficulty. Denies passing any large clots. Perineum with minimal edema. Fundus firm and below umbilicus. Const: General: cooperative, healthy appearing, no acute distress and alert Orientation/consciousness: patient oriented x3 Limitations: no limitations Resp: Effort & Inspection: normal respiratory effort Auscultation: clear to auscultation bilaterally Cardio: Rate: regular rate GI: Inspection: normal to inspection Neuro: General: patient oriented x3 Extrem: General: normal to inspection Psych: Appearance: grossly normal Mental Status: mental status grossly normal Affect: normal affect Thought process: Normal thought process present
--- NOTE | 2023-02-08 16:05 | PC.NURSE ---
[id number] Mother verbalizes she is able to independently latch with appropriate positioning/alignment. She denies any nipple discomfort and is with additional formula supplementation. Infant is currently meeting outcomes for weight, output, jaundice and feeding frequencies of 8-12 times in 24 hours. Reviewed protecting the milk supply and discussed optimally latching without pain or misshaped nipples. Watched as infant demonstrated with visualization and audible swallowing. Mother declines any additional assistance/education at this time. Mother is encouraged to call for assistance if her infant doesn?t latch or there is discomfort with latching. Mother voiced understanding of information shared and the mom reminded of the mom/baby guide for an additional resource. Reported to the primary RN.
[2023-02-09 04:45] VITALS: BP 144/84
[2023-02-09] MEDS: MULTIVIT/MIN/PREN/FOL AC/IRON TABLET 1 TAB PO (07:23)
[2023-02-09] MEDS: IBUPROFEN 600 MG TABLET PO (07:23)
[2023-02-09 07:50] VITALS: BP 142/78; PULSE 67; RESP 16; TEMP 36.8; O2SAT 100
--- NOTE | 2023-02-09 08:27 | PM.OBDSVD ---
DS: Admitting Diagnosis Discharge Date 02/09/23 Admitting Diagnosis intrauterine at term gestational hypertension DS: Discharge Diagnosis Discharge Diagnosis (1) Gestational hypertension: Code(s): O13.9 - Gestational [-induced] hypertension without significant proteinuria, unspecified trimester Status: Acute (2) : Code(s): Z34.90 - Encounter for supervision of normal , unspecified, unspecified trimester Status: Acute OB - DS: Summary Hospital Course Hospital Course: Uncomplicated OB Procedures : None OB Procedures Intrapartum: Spontaneous Vag Delivery OB Procedures: : None Status at Discharge Functional status at discharge: independent ambulation Overall status at discharge: patient is back to baseline Time Spent with Patient Time attestation: Total time spent providing and/or coordinating discharge services: Time spent: Less than 30 minutes Exam Const: General: comfortable and no acute distress Resp: Effort & Inspection: normal respiratory effort Auscultation: clear to auscultation bilaterally Cardio: Rate: regular rate GI: GI Palp: Yes Soft to palpation Auscultation: normal bowel sounds Other: Fundus firm below umbilicus Psych: Appearance: grossly normal Mental Status: mental status grossly normal Affect: normal affect DS: Data Data Completed and Pending Pending studies at discharge: Pending at discharge 02/08/23 08:24 Surgical [PTH] Routine Discharge Plan Discharge Attending physician on discharge: Lyndsay Torres Discharging Clinician: Jessie Ahumada Patient Disposition: Home, Self-Care Activity: may shower Diet: as tolerated Discharge Instructions: Continue taking your vitamin and any other supplements as previously directed (Examples: Iron, Vitamin D). You may take Tylenol 1000mg over the counter every 6 hours as needed for pain. Do not exceed 4000mg of Tylenol daily. You may continue using tucks pads and dermoplast spray if needed for a few more days. Patient Instructions: Antibiotic Form Stand Alone Forms: General Discharge Information Follow-up/Referrals: Jessie Ahumada, CNM [Primary Care Provider] - (6 weeks ) Discharge Medications: New ibuprofen 600 mg tablet 600 mg PO Q6H PRN (Reason: pain) Qty: 30 0RF Continued #2 Tablet 1 tablet PO DAILY cholecalciferol (vitamin D3) [Vitamin D3] 125 mcg (5,000 unit) Tablet 1 mcg WEEKLY Discontinued Baby Aspirin 81 mg PO DAILY Date of admission: 02/06/23 17:01 Primary Care Provider: Jessie Ahumada Admitting Provider: Lyndsay Torres Attending physician on admission: Lyndsay Torres Condition: Stable
--- NOTE | 2023-02-09 09:57 | PC.NURSE ---
Patient viewed the discharge video Mother & Baby Care, The First Two Weeks . Patient was given the opportunity and encouraged to ask questions. Patient verbalized understanding of information shared and has been given the mother/baby guide for home reference.
[2023-02-11 11:37] VITALS: BP 144/83; PULSE 65; RESP 18; TEMP 36.6; O2SAT 99
== END 2023-02-09 12:25 | disposition home or self-care (01) | DRG 768 ==
LOC: ANHLDR 02-07 09:57 → ANHOB2 02-09 09:02 → ANHLDR 02-10 10:33 → ANHOB2 02-10 10:33
PROVIDERS: Admitting Provider Obstetrics & Gynecology Gynecology; PCP Advanced Practice Midwife; Visit Provider Student in an Organized Health Care Education/Training Program
DX: O13.4 Gestational [pregnancy-induced] hypertension without significant proteinuria, complicating childbirth (principal); Z37.0 Single live birth; Z3A.39 39 weeks gestation of pregnancy; O99.824 Streptococcus B carrier state complicating childbirth; O99.72 Diseases of the skin and subcutaneous tissue complicating childbirth; N90.89 Other specified noninflammatory disorders of vulva and perineum
CPT/HCPCS: 36415; 80053; 85014; 85018; 85025; 86592; 86850; 86880; 86900; 86901; 86902; 88307; A9270; J0290; J2590; J2795; J7120

== ENCOUNTER 2024-09-25 08:48 | Outpatient (CLI) | payer OTHER, SELFPAY ==
--- NOTE | ~2024-09-25 | US_ITS ---
EXAMINATION: US OB /maternal detail DATE: 09/25/2024 09:21 INDICATION: anatomic survey. TECHNIQUE: Real-time ultrasound of the pelvis was performed. COMPARISON: None. FINDINGS: There is a single living fetus in vertex presentation. The placenta is posterior. heart rate i s 141 beats per minute (bpm). The cervical length is 2.6 cm on transabdominal images, which is normal . The amniotic fluid volume is subjectively normal. The following biometric data were obtained: Biparietal diameter (BPD): 5.0 cm; head circumference (HC): 19.1 cm; abdominal circumference (AC): 16 .2 cm; femur length (FL): 3.4 cm. These measurements are concordant. Estimated weight is 394 g +/- 59 g. As single measurements, these parameters are each equal to the following estimated gestational ages: BPD: 21 weeks 1 days. HC: 21 weeks 2 days. AC: 21 weeks 2 days. FL: 20 weeks 5 days. estimated gestational age based solely on measurements from this exam is 21 weeks 1 days +/- 1 weeks 3 days. The cerebral ventricles, cerebellum, cisterna magna, nuchal fold, lip, and spine are normal. The hear t is normal. The diaphragm, stomach, and kidneys are normal. There are two umbilical arteries to yiel d a 3-vessel cord. The cord insertion is normal. IMPRESSION: 1. Single living fetus in vertex presentation. 2. Estimated weight is 394 g +/- 59 g with estimated date of delivery of 02/04/2025 based on [facility] ultrasound. 3. Bladder not visualized and probably contracted. Otherwise normal anatomic survey. Consider r epeat ultrasound of the bladder to exclude a bladder abnormality. Reviewed, dictated and finalized at location A. ISES TECHNICIAN IMPRESSION: 1. Single living fetus in vertex presentation. 2. Estimated weight is 394 g +/- 59 g with estimated date of delivery of 02/04/2025 based on this ultrasound. 3. Bladder not visualized and probably contracted. Otherwise normal anato ken survey. Consider repeat ultrasound of the bladder to exclude a bladder abno rmality.
== END 2024-09-25 08:49 | disposition home or self-care (01) ==
PROVIDERS: PCP Nurse Practitioner Women's Health; Visit Provider Nurse Practitioner Women's Health
DX: Z36.9 Encounter for antenatal screening, unspecified (principal); Z3A.00 Weeks of gestation of pregnancy not specified
CPT/HCPCS: 76805

== ENCOUNTER 2024-10-24 08:34 | Outpatient (CLI) | payer OTHER, SELFPAY ==
--- NOTE | ~2024-10-24 | US_ITS ---
EXAMINATION: US OB follow up DATE: 10/24/2024 08:56 INDICATION: Follow-up prior anatomic survey with nonvisualized bladder. TECHNIQUE: Real-time ultrasound of the pelvis was performed. The interpreting radiologist was not pre sent for the study. COMPARISON: 09/25/2024 FINDINGS: There is a single living fetus in breech presentation. The placenta is posterior and not low-lying. heart rate is 153 beats per minute (bpm). The amniotic fluid volume is subjectively normal. Nor mal cervical length of 4.0 cm. The following biometric data were obtained: BPD: 6.2 cm -> 25 weeks 1 days Head circumference: 23.1 cm -> 25 weeks 1 days Abdominal circumference: 21.6 cm -> 26 weeks 1 days Femur length: 4.6 cm -> 25 weeks 0 days These measurements are concordant. Head circumference to abdominal circumference ratio: 1.07 (normal range 1.04-1.22). Estimated weight: 829 g (+/-) 124 g or 1 lbs. 13 oz. (+/-) 4 oz. IMPRESSION: 1. Single living fetus in breech presentation with heart rate of 153 bpm. 2. Normal bladder. 3. Estimated weight is 53rd percentile by Hadlock criteria when 02/04/2025 is used as the estima kassandra date of delivery (OLEGARIO) based upon the prior ultrasound. Please correlate with clinical informatio n or earlier ultrasounds for most accurate OLEGARIO. Reviewed, dictated and finalized at location A. IMPRESSION: 1. Single living fetus in breech presentation with heart rate of 153 bpm. 2. Normal bladder. 3. Estimated weight is 53rd percentile by Hadlock criteria when 02/04/2025 is used as the estimated date of delivery (OLEGARIO) based upon the prior ultrasoun d. Please correlate with clinical information or earlier ultrasounds for most a ccurate OLEGARIO.
== END 2024-10-24 08:35 | disposition home or self-care (01) ==
PROVIDERS: PCP Obstetrics & Gynecology Gynecology; Visit Provider Obstetrics & Gynecology Gynecology
DX: Z36.2 Encounter for other antenatal screening follow-up (principal)
CPT/HCPCS: 76816

== ENCOUNTER 2024-12-15 09:22 | Outpatient (RCR) | payer OTHER, SELFPAY ==
--- OUTSIDE RECORDS SUMMARY | 2024-12-15 09:28 | XMS_ITS | Clinical Summary ---
Author Organization [facility] Address [address] [place] [address] Care Team Providers Care Senior Physician Name Role Phone Unavailable Primary Care Provider Unavailabl e Source Comments [facility],non-owned Affiliates and Associated Physician Practices is amultiple site organization consisting of ambulatory clinics and hospital sitesin [place], [place], [place] and [place]. This disclosure is being madepursuant to the Care Everywhere program and may not contain all information available regarding this patient. Last updated 18.[facility] Immunizations Immunization Administration Dates Next Due HEP A VACCINE, ADULT 04/20/2017 Social History Tobacco Use Types Packs/Day Years Used Date Smoking Tobacco: Never Assessed Comments Unknown Sex and Gender Information Value Date Recorded Sex Assigned at Not on file Legal Sex Female 4:34 PM CDT Gender Identity Not on file Sexual Orientation Not on file Plan of Treatment Health Maintenance Due Date Last Done Comments PAP SMEAR 1990 HIV SCREENING 2005 HEPATITIS C SCREENING 11/19/2008 DTAP/TDAP/TD VACCINES (1 - Tdap) 2009 HEPATITIS B VACCINE (1 of 3 - 19+ 3-dose series) 2009 HEPATITIS A VACCINE (2 of 2 - Risk 2-dose series) 10/18/2017 04/20/2017 COVID-19 VACCINE ( - 2023-2 5 season) 2024 DEPRESSION SCREENING 08/09/2024 INFLUENZA VACCINE (Season Ended) 2025 ZOSTER VACCINE (1 of 2) 2040 HIB VACCINE Aged Out No longer eligi ble based on patient's age to complete this topic HPV VACCINE Aged Out No longer eligi ble based on patient's age to complete this topic MENINGOCOCCAL (Group B) VACC INE SHARED DECISION-MAKING Aged Out No longer eligibl e based on patient's age to complete this topic MENINGOCOCCAL GROUPS A/C/Y/W VACCINE Aged Out No longer eligible b ased on patient's age to complete this topic PNEUMOCOCCAL VACCINE Aged Out No long er eligible based on patient's age to complete this topic Insurance AETNA AETNA
[2024-12-15 11:00] LABS: Hematocrit 36.5 % (37.0-47.0); Hemoglobin 12.1 g/dL (12.0-15.0)
[2024-12-15 11:08] LABS: Glucose 1 Hour PP 50gm Dose 100 mg/dL
[2024-12-15 11:40] LABS: Syphilis IgG/IgM Antibody Negative (Negative)
[2024-12-15 11:53] LABS: HIV 1/2 Ab P24 Ag Result Negative (Negative)
[2024-12-17] MEDS: RHO(D) IMMUNE GLOBULIN 300 MCG/2 ML SYRINGE IM (17:17)
== END 2025-03-15 23:59 | disposition home or self-care (01) ==
LOC: ANHLAB 09:22
PROVIDERS: PCP Obstetrics & Gynecology Gynecology; Visit Provider Obstetrics & Gynecology Gynecology
DX: Z11.4 Encounter for screening for human immunodeficiency virus [HIV] (principal); Z11.3 Encounter for screening for infections with a predominantly sexual mode of transmission; Z29.13 Encounter for prophylactic Rho(D) immune globulin; O36.0190 Maternal care for anti-D [Rh] antibodies, unspecified trimester, not applicable or unspecified; Z3A.00 Weeks of gestation of pregnancy not specified
CPT/HCPCS: 36415; 82306; 82947; 85014; 85018; 85461; 86593; 86703; 86850; 86900; 86901; 90384; 96372; G0432; J2790

== ENCOUNTER 2025-01-19 16:18 | Outpatient (CLI) | payer OTHER, SELFPAY ==
[2025-01-19] VITALS (15 sets, daily range): BP systolic 123–137; BP diastolic 64–81; PULSE 69–82; O2SAT 97–100; BMI 29.6
--- OUTSIDE RECORDS SUMMARY | 2025-01-19 16:24 | XMS_ITS | Clinical Summary ---
Author Organization [facility] Address [address] [place] [address] Care Team Providers Care Market Asset Protection Manager Name Role Phone Unavailable Primary Care Provider Unavailabl e Source Comments [facility],non-owned Affiliates and Associated Physician Practices is amultiple site organization consisting of ambulatory clinics and hospital sitesin [place], [place], [place] and [place]. This disclosure is being madepursuant to the Care Everywhere program and may not contain all information available regarding this patient. Last updated 18.[facility] Immunizations Immunization Administration Dates Next Due HEP [...] Health Maintenance Due Date Last Done Comments HIV SCREENING 2005 HEPATITIS C SCREENING 11/19/2008 DTAP/TDAP/TD VACCINES (1 - Tdap) 2009 HEPATITIS B VACCINE (1 of 3 - 19+ 3-dose series) 2009 PAP SMEAR 11/25/2011 HEPATITIS A VACCINE (2 of 2 - [...]
[2025-01-19 17:12] LABS: Basophils Percent Auto 0.3 % (0.2-1.2); Eosinophils Absolute Auto 0.1 K/mm3 (0-0.3); Eosinophils Percent Auto 0.9 % (0-4.4); Hematocrit 35.5 % (37.0-47.0); Hemoglobin 11.8 g/dL (12.0-15.0); Immature Granulocyte Absolute 0.06 K/mm3 (0.00-0.031); Immature Granulocyte Percent A 0.8 % (0-0.5); Immature Platelet Fraction Pct 3.2 % (0.9-11.2); Lymphocytes Absolute Auto 2.77 K/mm3 (0.9-3.2); Lymphocytes Percent Auto 35.6 % (18.3-44.2); Mean Corpuscular HGB Conc 33.2 g/dl (32-36); Mean Corpuscular Hemoglobin 29.1 pg (26-34); Mean Corpuscular Volume 87.7 fl (80-100); Mean Platelet Volume 9.6 fl (7.4-10.4); Monocytes Absolute Auto 0.6 K/mm3 (0.1-0.6); Monocytes Percent Auto 8.1 % (2.6-8.5); Neutrophils Absolute Auto 4.2 K/mm3 (1.3-6.7); Neutrophils Percent Auto 54.3 % (45.5-73.1); Platelet Count Result 148 k/mm3 (150-375); Red Blood Count 4.05 M/mm3 (4.2-5.4); Red Cell Distribution Width 13.6 % (11.5-14.5); White Blood Count 7.8 K/mm3 (4.5-10.0)
[2025-01-19 17:20] LABS: Add Urine Microscopic? YES; Appearance Urine Cloudy (Clear); Bacteria Urine None Seen /hpf; Bilirubin Urine Negative (Negative); Blood Urine Negative (Negative); Color Urine Yellow (Yellow); Glucose Urine UA Negative (Negative); Ketones Urine Negative (Negative); Leukocyte Esterase Ur 2+ LEU/UL (Negative); Need Manual Microscopic Reviewed; Nitrate Urine Negative (Negative); Non Pathogenic Casts 0-2; Protein Urine Negative (Negative); RBC Urine 0-2 /hpf (0-2); Specific Grav Ur 1.003 (1.001-1.035); Squamous Epithelial Cell Urine Moderate /hpf (Few); Urobilinogen Urine 0.2 mg/dL (<2.0); WBC Urine 0-5 /hpf (0-3)
[2025-01-19 17:22] LABS: Alanine Aminotransferase 15 U/L (6-35); Albumin Level 3.6 g/dL (3.5-5.1); Alkaline Phosphatase 92 U/L (38-126); Anion Gap 7 mmol/L (4-12); Aspartate Amino Transferase 24 U/L (14-36); Bilirubin,Total 0.2 mg/dL (0.2-1.3); Blood Urea Nitrogen 5 mg/dL (7-17); Calcium 9.1 mg/dL (8.4-10.2); Carbon Dioxide 20 mmol/L (22-30); Chloride 108 mmol/L (98-107); Estimated CRCL calculation 133 ml/min; Estimated Glomerular Filt Rate > 60; Glucose 97 mg/dL (65-110); Potassium 3.5 mmol/L (3.4-5.0); Sodium 135 mmol/L (137-145); Total Protein 6.5 g/dL (6.3-8.2); Total Protein Urine Random 14 mg/dL; Uric Acid 4.9 mg/dL (2.5-7.5)
[2025-01-19 17:25] LABS: Creatinine Urine 14.6 mg/dL; Ur Ttl Prot Creatinine Ratio 0.96 mg/mg (0-0.20)
--- NOTE | 2025-01-19 17:44 | PC.NURSE ---
Dr. Torres called and updated on out of range lab results, patient BP range during workup, patient denies GRANDE, visual changes, RUQ pain, SOB, hand/face swelling, and NST reactive. Orders received to send patient home with 24 hour urine collection and instruct patient to practice light duty while at home. RN to bedside and education/supplies given to patient for 24 hour urine collection. All questions asked/answered and patient verbalizes understanding. Per order, patient d/c home
== END 2025-01-19 17:54 | disposition home or self-care (01) ==
LOC: ANHOBOP 16:21 → ANHLDR 16:22
PROVIDERS: Visit Provider Obstetrics & Gynecology Gynecology
DX: O13.9 Gestational [pregnancy-induced] hypertension without significant proteinuria, unspecified trimester (principal); Z3A.00 Weeks of gestation of pregnancy not specified
CPT/HCPCS: 36415; 59025; 80053; 81001; 82570; 84156; 84550; 85025; 85055; 99199

== ENCOUNTER 2025-01-20 21:20 | Outpatient (NON) | payer OTHER, SELFPAY ==
--- OUTSIDE RECORDS SUMMARY | 2025-01-20 21:48 | XMS_ITS | Clinical Summary ---
Author Organization [facility] Address [address] [place] [address] Care Team Providers Care Ediscovery Project Manager Name Role Phone Unavailable Primary Care Provider Unavailabl e Source Comments [facility],non-owned Affiliates and Associated Physician Practices is amultiple site organization consisting of ambulatory clinics and hospital sitesin [place], [place], [place] and [place]. This disclosure is being madepursuant to the Care Everywhere program and may not contain all information available regarding this patient. Last updated 18.[facility] Immunizations Immunization Administration Dates Next Due HEP [...]
[2025-01-21 09:16] LABS: Collection Time Urine 24 HOURS
[2025-01-21 09:37] LABS: Total Volume 24 Hour Urine 3100 ml
[2025-01-21 09:38] LABS: Specific Gravity Ur 1.008
[2025-01-21 10:20] LABS: Creatinine Urine 49.4 mg/dL; Serum Creat 0.59; Total Protein Urine 24 Hr 341 mg/24hr (28-141); Total Protein Urine Random 11 mg/dL
[2025-01-21 10:21] LABS: Creatinine Clearance Urine 154.7 ml/min (75-125); Patient Weight 195 Lbs
== END 2025-01-20 21:21 | disposition home or self-care (01) ==
LOC: ANHOBOP 21:46
PROVIDERS: Visit Provider Obstetrics & Gynecology Gynecology
DX: O13.9 Gestational [pregnancy-induced] hypertension without significant proteinuria, unspecified trimester (principal); Z3A.00 Weeks of gestation of pregnancy not specified
CPT/HCPCS: 81050; 82575; 84156

== ENCOUNTER 2025-01-23 05:56 | Inpatient (IN) | payer OTHER, SELFPAY ==
[2025-01-23] VITALS (189 sets, daily range): BP systolic 102–163; BP diastolic 50–116; PULSE 69–150; RESP 16; TEMP 36.4–37; O2SAT 94–100; BMI 29.8
--- OUTSIDE RECORDS SUMMARY | 2025-01-23 06:01 | XMS_ITS | Clinical Summary ---
Author Organization [facility] [employer] Address [address] [place] [address] Care Team Providers Care Shot Polisher Name Role Phone Unavailable Primary Care Provider Unavailabl e Source Comments [facility],non-owned Affiliates and Associated Physician Practices is amultiple site organization consisting of ambulatory clinics and hospital sitesin [place], [place], [place] and [place]. This disclosure is being madepursuant to the Care Everywhere program and may not contain all information available regarding this patient. Last updated 18.[facility] [employer] Immunizations Immunization Administration Dates Next Due HEP [...]
--- NOTE | 2025-01-23 06:32 | P.PNAN_ITS ---
Anes - Eval Pre Procedure Procedure: labor epidural Date/Time: 01/23/25 06:32 Surgeon: maryjane Preop Diagnosis: pain during labor Pre Op Diagnosis: IOL Patient Data Age: 34 Gender: F Height: Weight: Allergies Allergy/AdvReac Type Severity Reaction Status Date / Time Penicillins Allergy Unknown as child Verified 01/18/25 14:53 Home Medications ?Medication ?Instructions ?Recorded ?Confirmed ?Type cholecalciferol (vitamin D3) 125 1 mcg WEEKLY 01/22/23 02/06/23 History mcg (5,000 unit) tablet (Vitamin D3) prenat.vits,christina,[id number] 1 tablet PO DAILY 01/22/23 01/18/25 History aspirin 81 mg tablet 81 mg PO DAILY 01/18/25 01/18/25 History Patient hx anesthesia problems: none Family hx anesthesia problems: none Results Review: All pre-operative results and documents have been reviewed as part of the pre- operative evaluation. PMF Past Medical History Medical History (Updated 02/09/23 @ 08:28 by Prosper Mckenna MD) Obesity (BMI 30-39.9) Vaginal delivery x1 Surgical History Surgical History Bristow teeth extracted Family History Family History (Updated 01/18/25 @ 14:41 by Rosemary Burleson RN) Father Hypertension Cerebrovascular accident Social History Social History Smoking status: Never smoker Alcohol intake: never Substance use: never Do You Feel Safe in your Home?: Yes Lack of Transportation: No Lack of Food: Never True Current Housing: I Have Housing Concerned About Future Housing: No Difficulty Paying Gas/Electric Bills: No Difficulty Paying for Meds: No Currently Unemployed: No Education: Bachelor's Degree Difficulty w/ Childcare or Family Care: No Gender identity (if verbalized by the patient): Female Spiritual care concerns: No Exam Day of Procedure 01/23/25 06:32
[2025-01-23 07:00] LABS: Basophils Percent Auto 0.3 % (0.2-1.2); Eosinophils Absolute Auto 0.1 K/mm3 (0-0.3); Hematocrit 36.5 % (37.0-47.0); Hemoglobin 12.5 g/dL (12.0-15.0); Immature Granulocyte Absolute 0.06 K/mm3 (0.00-0.031); Immature Granulocyte Percent A 0.7 % (0-0.5); Immature Platelet Fraction Pct 3.7 % (0.9-11.2); Lymphocytes Absolute Auto 3.31 K/mm3 (0.9-3.2); Lymphocytes Percent Auto 38.1 % (18.3-44.2); Mean Corpuscular HGB Conc 34.2 g/dl (32-36); Mean Corpuscular Hemoglobin 29.3 pg (26-34); Mean Corpuscular Volume 85.5 fl (80-100); Mean Platelet Volume 9.9 fl (7.4-10.4); Monocytes Absolute Auto 0.6 K/mm3 (0.1-0.6); Monocytes Percent Auto 6.9 % (2.6-8.5); Neutrophils Absolute Auto 4.6 K/mm3 (1.3-6.7); Platelet Count Result 146 k/mm3 (150-375); Red Blood Count 4.27 M/mm3 (4.2-5.4); Red Cell Distribution Width 13.5 % (11.5-14.5); White Blood Count 8.7 K/mm3 (4.5-10.0)
[2025-01-23] MEDS: LACTATED RINGERS 1,000 ML 125 ML IV CONT ×3 (07:06→16:11)
[2025-01-23] MEDS: OXYTOCIN 30 UNITS/NS 500 ML 30 UNITS/500 ML BAG IV CONT (07:08)
[2025-01-23] MEDS: ceFAZolin 1 GM/NS 50 ML 1 GM/50 ML BAG IVPB ×2 (07:09→15:11)
[2025-01-23 07:12] LABS: Alanine Aminotransferase 18 U/L (6-35); Albumin Level 3.7 g/dL (3.5-5.1); Alkaline Phosphatase 98 U/L (38-126); Anion Gap 7 mmol/L (4-12); Aspartate Amino Transferase 28 U/L (14-36); Bilirubin,Total 0.4 mg/dL (0.2-1.3); Blood Urea Nitrogen 5 mg/dL (7-17); Calcium 9.4 mg/dL (8.4-10.2); Carbon Dioxide 20 mmol/L (22-30); Chloride 106 mmol/L (98-107); Estimated Glomerular Filt Rate > 60; Glucose 82 mg/dL (65-110); Potassium 3.8 mmol/L (3.4-5.0); Sodium 133 mmol/L (137-145); Total Protein 6.6 g/dL (6.3-8.2); Uric Acid 5.6 mg/dL (2.5-7.5)
--- NOTE | 2025-01-23 07:22 | LDADM ---
This patient, Anna Carr, was admitted to Labor/Delivery/Recovery 103 on 01/23/25 at 05:56. Plans for labor, pain management and were discussed with patient. Patient/family oriented to hospital policies and general routines including ID bracelet, bed and alarms, visiting hours, pain management, procedures, bathroom and other care routines, personal items, smoking policy, room service/diet and guest tray routines, security routines, and visiting hours. Patient/Family are encouraged to report perceived risks to care and to ask questions if they do not understand what they are told or what they should do. See OBIX for further documentation.
--- NOTE | 2025-01-23 07:38 | WPDOBADMIT ---
Obstetrics - Admit Note Admission Note: record reviewed. No pertinent additions to the history and/or any subsequent changes in the physical findings that are not consistent with the expected course of the were found. Additions to the history and/or subsequent changes in the physical findings following. Here for MIL for preeclampsia. No symptoms. Cervix 2-3/50/-2 AROM with clear fluid. FHTs reactive. Pitocin per protocol. Labs with plt 140 and UA 5.6, otherwise normal.
[2025-01-23 07:50] LABS: Syphilis IgG/IgM Antibody Non-Reactive (Nonreactive)
[2025-01-23 07:54] LABS: HIV 1/2 Ab P24 Ag Result Negative (Negative)
--- NOTE | 2025-01-23 17:48 | PM.OBPRVD ---
OB - Vaginal Delivery Note Procedure Delivery date: 01/23/25 Events: Preeclampsia w/o severe features Induction method: AROM and Per Pitocin Protocol Delivery monitor: External FHT and External Uterine Route of delivery: Episiotomy description: None Laceration Description: Perineal - 1st Degree Delivery repair: vicryl (3-0) Specimen: No Quantitative Blood Loss (ml): 150 Anesthesia type: Epidural (and local) Disposition: Floor Complications: No immediate complications [place] Baby Date of : 01/23/25 Gestational Age by Date: 37 (37 3/7) gender: Male presentation: vertex position: Right Occiput Anterior Placenta delivery description: Spontaneous Cord Vessel Description: 3 Vessels and Delayed Cord Clamping score one minute: 7 score five minutes: 9
--- NOTE | 2025-01-23 17:49 | PM.OBDSVD ---
DS: Admitting Diagnosis Discharge Date 01/25/25 Admitting Diagnosis IUP 37 3/ MIL for preeclampsia DS: Discharge Diagnosis Discharge Diagnosis (1) (normal spontaneous vaginal delivery): Code(s): O80 - Encounter for full-term uncomplicated delivery Status: Acute (2) Preeclampsia: Code(s): O14.90 - Unspecified pre-eclampsia, unspecified trimester Status: Acute OB - DS: Summary OB Procedures : Ultrasound OB Procedures Intrapartum: Spontaneous Vag Delivery OB Procedures: : None Peripartum Data Infant Delivery Method: Natural Vaginal Laceration Description: Perineal - 1st Degree Episiotomy description: None complications: none Status at Discharge Functional status at discharge: independent ambulation Overall status at discharge: patient is progressing back to baseline Time Spent with Patient Time attestation: Total time spent providing and/or coordinating discharge services: DS: Data Data Completed and Pending Labs on day of discharge: Labs from last 24 hours 01/23/25 01/23/25 06:28 06:28 WBC 8.7 RBC 4.27 Hgb 12.5 Hct 36.5 L MCV 85.5 MCH 29.3 MCHC 34.2 RDW 13.5 Plt Count 146 L MPV 9.9 Immature Gran % (Auto) 0.7 H Neut % (Auto) 53.0 Lymph % (Auto) 38.1 [place] % (Auto) 6.9 Eos % (Auto) 1.0 Baso % (Auto) 0.3 Lymph # (Auto) 3.31 H [place] # (Auto) 0.6 Eos # (Auto) 0.1 Baso # (Auto) 0.0 Abs Immat Gran (auto) 0.06 H Absolute Neuts (auto) 4.6 Absolute Nucleated RBC 0.000 Nucleated RBC % 0.0 % Immature Plt Fraction 3.7 Sodium 133 L Potassium 3.8 Chloride 106 Carbon Dioxide 20 L Anion Gap 7 BUN 5 L Creatinine 0.59 L Estim Creat Clear Calc Not Reportable Estimated GFR > 60 Glucose 82 Uric Acid Cancelled 5.6 Calcium 9.4 Total Bilirubin 0.4 AST 28 ALT 18 Alkaline Phosphatase 98 Total Protein 6.6 Albumin 3.7 Syphilis IgG/IgM Ab Non-reactive HIV 1&2 Ab/P24 Ag 4thGn Negative Blood Type O Negative Antibody Screen Positive Antibody Identification Passive Due to RH Imm Glob Antigen Identification TNP ALAINA, IgG Interpret Not Performed ALAINA, Poly Interpret Negative ALAINA, Complement Interp Not Performed Discharge Plan Discharge Attending physician on discharge: Lyndsay Torres Discharging Clinician: Lyndsay Torres Anticipated Discharge Date/Time: 01/25/25 17:50 Patient Disposition: Home Activity: may shower and pelvic rest Diet: regular Patient Instructions: Antibiotic Form Patient Language: Filipino Stand Alone Forms: General Discharge Information Follow-up/Referrals: Lyndsay Torres MD [Physician] - 1 Week (and 6 wk) Discharge Medications: Continued prenat.vits,christina,[id number] Tablet 1 tablet PO DAILY cholecalciferol (vitamin D3) [Vitamin D3] 125 mcg (5,000 unit) Tablet 1 mcg PO WEEKLY Discontinued aspirin 81 mg tablet 81 mg PO DAILY Date of admission: 01/23/25 05:56 Primary Care Provider: UNKNOWN,DOCTOR Admitting Provider: Lyndsay Torres Attending physician on admission: Lyndsay Torres Condition: Stable
[2025-01-23] MEDS: LIDOCAINE 1% LOCAL INJ 10 ML VIAL 20 ML INFILTRATE (17:59)
[2025-01-23] MEDS: OXYTOCIN 30 UNITS/NS 500 ML 30 UNITS/500 ML BAG 125 UNITS IV CONT (18:05)
[2025-01-23] MEDS: IBUPROFEN 600 MG TABLET PO (20:10)
[2025-01-23] MEDS: WITCH HAZEL 40 PADS 1 PAD TOPICAL (20:14)
[2025-01-23] MEDS: BENZOCAINE 20% AER SPR (*SP) 56 GM CAN 1 SPRAY TOPICAL (20:14)
--- NOTE | 2025-01-23 20:35 | OBPPTRN ---
Patient transferred to post room #282 via wheelchair. Support person present. Oriented to unit, room, information board, rooming in, admission packet and security measures. Patient verbalizes understanding.
[2025-01-24 02:40] VITALS: BP 128/78; PULSE 72; RESP 16; TEMP 36.5; O2SAT 98
[2025-01-24 04:00] VITALS: BP 137/78; PULSE 93; RESP 16; TEMP 37; O2SAT 99
[2025-01-24 04:53] LABS: Hematocrit 32.7 % (37.0-47.0); Hemoglobin 11.2 g/dL (12.0-15.0)
[2025-01-24] MEDS: IBUPROFEN 600 MG TABLET PO ×2 (07:19→19:08)
[2025-01-24 07:20] VITALS: BP 136/82; PULSE 72; RESP 16; TEMP 36.7; O2SAT 100
[2025-01-24] MEDS: MULTIVIT/MIN/PREN/FOL AC/IRON TABLET 1 TAB PO (07:20)
[2025-01-24] MEDS: DOCUSATE SODIUM 100 MG CAPSULE PO (07:20)
[2025-01-24] MEDS: LANOLIN (LANSINOH) 7.5 GM CREAM 1 APPLIC TOPICAL (07:21)
--- NOTE | 2025-01-24 08:51 | P.PNOB_ITS ---
OB - PN: Subj Subjective Date/time seen: 01/24/25 08:51 Patient comments: no complaints and pain well controlled baby status: other (Level II nursery) OB - PN: Obj Data Labs 01/24/25 04:24 01/23/25 06:28 Labs: Laboratory Results - last 24 hr 01/24/25 04:24 Hgb 11.2 L Hct 32.7 L Blood Type O Negative Antibody Screen TNP Screen Negative Baby's Blood Type O pos Baby's ALAINA Positive Doses of RhIg Required 1 OB - PN A/P Assessment and Plan (1) Preeclampsia: Code(s): O14.90 - Unspecified pre-eclampsia, unspecified trimester Status: Acute Assessment and Plan: No symptoms. BP good. No diuresis yet Plan day: 1 Plan: routine care Time Spent With Patient Time: Total time spent is greater than 50% in coordination of care (as documented) at patient's floor/unit and/or counseling patient: Exam 2 : Bimanual exam- vagina & uterus: other (Uterus firm, nt @U)
--- NOTE | 2025-01-24 11:20 | PC.NURSE ---
Introductions were made, then consulted with patient to assess needs related to . Discussed with mother her plans to feed her and the experience so far. Baby was in level 2 initially but was able to transition upstairs this morning. Mom says that baby had a bottle downstairs and has breastfed once so far. She states that she is interested in pumping and a [employer] insurance pump was provided. She states that she isn't ready to go over the pump yet so she is instructed to call out when she is ready. We reviewed the blue worksheet and what to expect for in the immediate period. Her first baby was exclusively breastfed and would not take a bottle. Her second baby did both and she would like this baby to be able to bottle feed and breastfeed. She intends to focus on establishing first. Resources provided for inpatient and outpatient services with the feeding sheet, mom/baby guide and name written on the communication board. Mother voiced understanding of information and will call if there is a request for assistance. Reported to the Primary RN.??
[2025-01-24 12:37] VITALS: BP 139/81; PULSE 70; RESP 16; TEMP 36.1; O2SAT 98
--- NOTE | 2025-01-24 14:48 | WPDANLDPN2 ---
Anes-Prog Note L&D Date/Time: 01/24/25 14:48 Comfortable throughout: labor and delivery Neuraxial method: epidural Epidural/Spinal procedure site: clean & non-tender Neuro status: Neuro function grossly intact. Cardiovascular status: normal Respiratory status: normal Airway patency: baseline Mental status: baseline Post-Op hydration status: normal Vital Signs: Last Vital Signs Temp 97 F L 01/24/25 12:37 Pulse 70 01/24/25 12:37 Resp 16 01/24/25 12:37 BP 139/81 01/24/25 12:37 Pulse Ox 98 01/24/25 12:37 O2 Del Method Room Air 01/23/25 20:14 Pain score (VAS): 0/10 I/O: Intake & Output 01/23/25 01/24/25 01/24/25 23:59 07:59 15:59 Intake Total 5177 599 2436 Output Total 150 2000 1000 Balance 850 -1300 200 Post-procedural complaints: none Patient feedback: Patient satisfied with anesthetic care. Issues with one sided epidural noted and pt never got comfortable.
[2025-01-24] MEDS: RHO(D) IMMUNE GLOBULIN 300 MCG/2 ML SYRINGE IM (16:56)
[2025-01-24 20:00] VITALS: BP 145/89; PULSE 78; RESP 18; TEMP 36.4; O2SAT 99
[2025-01-25] VITALS: BP 144/88; PULSE 78; RESP 18
[2025-01-25 04:00] VITALS: BP 140/91; PULSE 64; RESP 16
[2025-01-25] MEDS: IBUPROFEN 600 MG TABLET PO (04:38)
--- NOTE | 2025-01-25 07:42 | P.PNOB_ITS ---
OB - PN: Subj Subjective Date/time seen: 01/25/25 07:42 Patient comments: no complaints and pain well controlled baby status: doing well OB - PN: Obj Data Labs 01/24/25 04:24 01/23/25 06:28 Labs: Laboratory Results - last 24 hr 01/24/25 04:24 Blood Type O Negative Antibody Screen TNP Screen Negative Baby's Blood Type O pos Baby's ALAINA Positive Doses of RhIg Required 1 OB - PN A/P Assessment and Plan (1) Preeclampsia: Code(s): O14.90 - Unspecified pre-eclampsia, unspecified trimester Status: Acute Assessment and Plan: BP stable. Great diuresis. No PIH sx. DC home. F/u 1 wk Plan day: 2 Plan: routine care and discharge home Time Spent With Patient Time: Total time spent is greater than 50% in coordination of care (as documented) at patient's floor/unit and/or counseling patient: Exam 2 : Bimanual exam- vagina & uterus: other (Uterus firm, nt @U)
[2025-01-25 08:00] VITALS: BP 138/81; PULSE 67; RESP 16; TEMP 36.7; O2SAT 99
[2025-01-25] MEDS: DOCUSATE SODIUM 100 MG CAPSULE PO (09:23)
[2025-01-25] MEDS: ACETAMINOPHEN 325 MG TABLET 650 MG PO (09:23)
[2025-01-25] MEDS: MULTIVIT/MIN/PREN/FOL AC/IRON TABLET 1 TAB PO (09:23)
--- NOTE | 2025-01-25 10:35 | PC.NURSE ---
Consulted with mother concerning needs and she shared her ability to independently latch infant optimally without pain. Mother is feeding appropriately for growth of and understands stimulating to eat if needed. Infant has had appropriate feedings in the last 24 hours meets the outcomes for weight, output, blood sugar and jaundice at this time. Reinforced understanding of milk production, transition of milk, signs of adequate intake, transition of stool, prevention/relief of engorgement, plugged ducts, mastitis, responsive watching for feeding cues, the different methods of stimulating to breastfeed 1-3 hours after the start of the last feeding, community resources, and when to call a provider using the resource of the feeding sheet along with the mom and baby guide. Mother voiced understanding of the information shared, is confident to continue effectively her infant at home, when to call for assistance, denies any additional assistance or education at this time. Reported to the Primary RN.
--- NOTE | 2025-01-25 11:30 | PC.NURSE ---
Patient viewed the discharge video Mother & Baby Care, The First Two Weeks. Patient was given the opportunity and encouraged to ask questions. Patient verbalized understanding of information shared and has been given the mother/baby guide for home reference.
[2025-01-25 13:03] VITALS: BP 137/80; PULSE 80; RESP 18; TEMP 36.7; O2SAT 99
== END 2025-01-25 15:02 | disposition home or self-care (01) | DRG 807 ==
LOC: ANHLDR 17:51 → ANHOB2 20:36
PROVIDERS: Admitting Provider Obstetrics & Gynecology Gynecology; Visit Provider Obstetrics & Gynecology Gynecology
DX: O14.04 Mild to moderate pre-eclampsia, complicating childbirth (principal); Z37.0 Single live birth; O99.824 Streptococcus B carrier state complicating childbirth; O70.0 First degree perineal laceration during delivery; Z3A.37 37 weeks gestation of pregnancy
CPT/HCPCS: 36415; 80053; 84550; 85014; 85018; 85025; 85055; 85461; 86593; 86703; 86850; 86880; 86900; 86901; 86902; 90384; A9270; G0432; J0690; J2003; J2590; J2790; J2795; J7120